=== PATIENT | male | born 1955 | race Caucasian/White ===

== ENCOUNTER 2018-04-04 03:15 | Outpatient (CLI) | payer OTHER, SELFPAY ==
[2018-04-04 08:31] LABS: Cholesterol 180 mg/dL (50-200); HDL Cholesterol 60 mg/dL (40-60); LDL CHOLESTEROL 110 mg/dL (<100); Triglyceride 94 mg/dL (30-150)
== END 2018-04-04 03:35 ==
PROVIDERS: PCP Internal Medicine; Visit Provider Internal Medicine
DX: R78.5 Finding of other psychotropic drug in blood (principal); R97.20 Elevated prostate specific antigen [PSA]
CPT/HCPCS: 36415; 80061; 83721; 84154

== ENCOUNTER 2018-10-29 02:04 | Outpatient (CLI) | payer OTHER, SELFPAY ==
[2018-10-30 15:43] LABS: Free PSA/PSA Ratio 0.11 ratio
== END 2018-10-29 02:24 ==
PROVIDERS: PCP Internal Medicine; Visit Provider Urology
DX: R97.20 Elevated prostate specific antigen [PSA] (principal)
CPT/HCPCS: 36415; 84154

== ENCOUNTER 2019-05-06 09:24 | Outpatient (CLI) | payer OTHER, SELFPAY | END 2019-05-06 09:44 | PROVIDERS: PCP Internal Medicine; Visit Provider Urology | DX: R97.20 Elevated prostate specific antigen [PSA] (principal) | CPT/HCPCS: 36415; 84154 ==

== ENCOUNTER 2020-06-23 02:56 | Outpatient (CLI) | payer OTHER, SELFPAY ==
[2020-06-23 19:50] LABS: PSA, Diagnostic 4.2 ng/mL (0.0-4.5)
== END 2020-06-23 03:16 ==
PROVIDERS: PCP Nurse Practitioner; Visit Provider Urology
DX: R97.20 Elevated prostate specific antigen [PSA] (principal)
CPT/HCPCS: 36415; 84153

== ENCOUNTER 2021-06-27 03:09 | Outpatient (CLI) | payer BC, SELFPAY ==
[2021-06-27 18:38] LABS: PSA, Diagnostic 4.4 ng/mL (0.0-4.5)
== END 2021-06-27 03:10 | disposition home or self-care (01) ==
LOC: LBO 03:09
PROVIDERS: PCP Nurse Practitioner; Visit Provider Urology
DX: R97.20 Elevated prostate specific antigen [PSA] (principal)
CPT/HCPCS: 36415; 84153

== ENCOUNTER 2022-06-19 03:05 | Outpatient (CLI) | payer BC, SELFPAY ==
[2022-06-19 22:16] LABS: PSA, Diagnostic 4.8 ng/mL (<=4.5)
== END 2022-06-19 03:06 | disposition home or self-care (01) ==
LOC: LBO 03:05
PROVIDERS: PCP Nurse Practitioner Family; Visit Provider Urology
DX: R97.20 Elevated prostate specific antigen [PSA] (principal)
CPT/HCPCS: 36415; 84153

== ENCOUNTER 2022-07-26 02:32 | Outpatient (CLI) | payer BC, SELFPAY ==
[2022-07-26 07:39] LABS: Anion Gap 4.9 mmol/L (3-11); BUN 16 mg/dL (7-18); CO2 32.1 mmol/L (21.0-32.0); CREATININE 0.9 mg/dL (0.70-1.30); Chloride 100 mmol/L (98-107); Estimated GFR 94.19 (mL/min/1.73m2); Glucose 104 mg/dL (74-106); Potassium 3.3 mmol/L (3.5-5.1); Sodium 137 mmol/L (136-145)
[2022-07-26 07:41] LABS: COMMENT (LAB VIEW ONLY) 143.85 mg/dL; Microalb ug/mg Crea 4.2 ug/mg Cr
[2022-07-27 10:11] LABS: HIV-1/2 Ag & Ab Screen Negative (Negative)
[2022-07-27 11:02] LABS: Hepatitis C Ab w Rflx HCV PCR Negative (Negative)
== END 2022-07-26 02:33 | disposition home or self-care (01) ==
PROVIDERS: PCP Nurse Practitioner Family; Visit Provider Nurse Practitioner Family
DX: I10 Essential (primary) hypertension (principal); Z11.4 Encounter for screening for human immunodeficiency virus [HIV]; Z11.59 Encounter for screening for other viral diseases
CPT/HCPCS: 36415; 80048; 86803; 87389; 82043; 82570

== ENCOUNTER 2023-06-26 03:39 | Outpatient (CLI) | payer BC, SELFPAY | END 2023-06-26 03:40 | disposition home or self-care (01) | LOC: LBO 03:39 | PROVIDERS: PCP Nurse Practitioner Family; Visit Provider Urology | DX: R97.20 Elevated prostate specific antigen [PSA] (principal) | CPT/HCPCS: 36415; 84153 ==

== ENCOUNTER 2023-07-27 03:37 | Outpatient (CLI) | payer BC, SELFPAY ==
[2023-07-27 07:52] LABS: ALT 28 U/L (16-63); AST 16 U/L (15-37); Albumin 3.6 g/dL (3.4-5.0); Alkaline Phosphatase 103 U/L (46-116); Anion Gap 7.7 mmol/L (3-11); BUN 15 mg/dL (7-18); Bilirubin, Total 0.8 mg/dL (0.2-1.0); CO2 29.3 mmol/L (21.0-32.0); Calcium 9.1 mg/dL (8.5-10.1); Calculated LDL 107 mg/dL (<100); Chloride 98 mmol/L (98-107); Cholesterol 184 mg/dL (<200); Estimated GFR 82.49 (mL/min/1.73m2); Glucose 106 mg/dL (74-106); HDL Cholesterol 55 mg/dL (40-60); Potassium 3.4 mmol/L (3.5-5.1); Sodium 135 mmol/L (136-145); Total Protein 7.4 g/dL (6.4-8.2); Triglyceride 114 mg/dL (<150)
== END 2023-07-27 03:38 | disposition home or self-care (01) ==
PROVIDERS: PCP Nurse Practitioner Family; Visit Provider Nurse Practitioner Family
DX: Z13.220 Encounter for screening for lipoid disorders (principal)
CPT/HCPCS: 36415; 80053; 80061

== ENCOUNTER → 2023-08-09 01:16 | Outpatient (CLI) | payer BC, SELFPAY ==
--- NOTE | 2023-08-09 14:50 | DI.RAD_ITS ---
Exam(s) XR CHEST 2V PA LATERAL EXAM: XR CHEST 2V PA LATERAL CLINICAL HISTORY: ongoing bronchospasm in asthmatic,chronic cough, r05.3. TECHNIQUE: 2D digital imaging was performed. COMPARISON: CR CHEST 2 VIEWS PA,LAT from 10/15/2009 FINDINGS: 2 views: Pectus excavatum is again noted. Heart size is normal. The mediastinum is not widened. There is subsegmental platelike atelectasis in the medial right lung base. No other pulmonary findin gs. No confluent infiltrates. No pleural effusions. IMPRESSION: There is subsegmental platelike atelectasis in the medial right lung base. DATA REPOSITORY: RADIATION DOSE DELIVERED:
== END ==
PROVIDERS: PCP Nurse Practitioner Family; Visit Provider Family Medicine
DX: R05.3 Chronic cough (principal); J98.01 Acute bronchospasm; J98.11 Atelectasis; J45.998 Other asthma
CPT/HCPCS: 71046

== ENCOUNTER 2023-08-24 10:34 | Outpatient (CLI) | payer BC, SELFPAY ==
--- NOTE | 2023-08-24 10:30 | RT.EKG_ITS ---
APPROVED REPORT Exam: Resting ECG Reason for Exam: tachycardia Patient Location: O HR:102 bpm ECG Measurements Heart Rate 102 AXIS TX [id number] P [id number] QRSd 107 QRS -25 QT 355 T 34 QTc 463 Conclusion Atrial fibrillation...? atrial activity Ventricular premature complex...V complex w/ short R-R interval Left ventricular hypertrophy...multiple voltage criteria I have reviewed and interpreted ECG and agree with software generated interpretation.
== END 2023-08-24 10:35 | disposition home or self-care (01) ==
LOC: DI.CM 10:35
PROVIDERS: PCP Nurse Practitioner Family; Visit Provider Nurse Practitioner Family
DX: R00.0 Tachycardia, unspecified (principal); R06.02 Shortness of breath
CPT/HCPCS: 93010

== ENCOUNTER 2023-08-24 15:16 | Emergency (ER) | payer BC, SELFPAY ==
--- NOTE | 2023-08-24 15:15 | RT.EKG_ITS ---
APPROVED REPORT Exam: Resting ECG Reason for Exam: Chest pain Patient Location: E HR:100 bpm ECG Measurements Heart Rate 100 AXIS MD [id number] P [id number] QRSd 108 QRS -25 QT 346 T 65 QTc 447 Conclusion Atrial fibrillation...V-rate 83-127, irreg A-activity Probable LVH with secondary repol abnrm...multiple LVH criteria
[2023-08-24 15:19] VITALS: BP 169/97; PULSE 114; RESP 18; O2SAT 94
--- NOTE | 2023-08-24 15:42 | ED.GENADUL_ITS ---
HPI General Mode of arrival: ambulatory . Date/Time Provider Initiated Documentation: 08/24/23 15:19 . Limitations to Documentation: no limitations . Information obtained by: patient . History of Present Illness 68 year old M presents to the emergency department with the chief complaint of cough, described as moderate, Patient started experiencing this week(s) (5) and it has been constant. No relieving factors improve symptom(s), No exacerbating factors reported . Patient notes shortness of breath; denies chest pain. Patient did receive the following treatments prior to arrival, none Related Data Home Medications Medication Instructions Recorded Confirmed omega-3 fatty acids-fish oil 684 1 ea PO DAILY 08/21/17 08/24/23 mg-1,200 mg capsule,delayed release (One-Per-Day [place]-3) amlodipine 10 mg tablet 10 mg PO DAILY #90 tabs 07/13/23 08/24/23 hydrochlorothiazide 25 mg tablet 25 mg PO DAILY #90 tabs 07/13/23 08/24/23 montelukast 10 mg tablet 10 mg PO DAILY #90 tab-caps 07/13/23 08/24/23 (Singulair) sildenafil 50 mg tablet (Viagra) 50 mg PO DAILY PRN sexual activity 07/13/23 08/24/23 #30 tabs albuterol sulfate 90 mcg/actuation 2 puff inhalation Q6H PRN 08/01/23 08/24/23 aerosol inhaler (ProAir HFA) shortness of breath or wheezing #8.5 grams fluticasone propionate 220 2 puff inhalation BID #1 ea 08/07/23 08/24/23 mcg/actuation HFA aerosol inhaler (Flovent HFA) apixaban 2.5 mg tablet (Eliquis) 2.5 mg PO BID #180 tabs 08/24/23 08/24/23 losartan 100 mg tablet See Rx Instructions PO DAILY 08/24/23 08/24/23 metoprolol succinate 50 mg 50 mg PO DAILY #30 tabs 08/24/23 tablet,extended release 24 hr nystatin 100,000 unit/mL oral 4 ml PO QID 7 days #480 mL 08/24/23 08/24/23 suspension Previous Rx's Medication Instructions Recorded amlodipine 10 mg tablet 10 mg PO DAILY #90 tabs 07/13/23 hydrochlorothiazide 25 mg tablet 25 mg PO DAILY #90 tabs 07/13/23 montelukast 10 mg tablet 10 mg PO DAILY #90 tab-caps 07/13/23 (Singulair) sildenafil 50 mg tablet (Viagra) 50 mg PO DAILY PRN sexual activity 07/13/23 #30 tabs albuterol sulfate 90 mcg/actuation 2 puff inhalation Q6H PRN 08/01/23 aerosol inhaler (ProAir HFA) shortness of breath or wheezing #8.5 grams fluticasone propionate 220 2 puff inhalation BID #1 ea 08/07/23 mcg/actuation HFA aerosol inhaler (Flovent HFA) apixaban 2.5 mg tablet (Eliquis) 2.5 mg PO BID #180 tabs 08/24/23 metoprolol succinate 50 mg 50 mg PO DAILY #30 tabs 08/24/23 tablet,extended release 24 hr nystatin 100,000 unit/mL oral 4 ml PO QID 7 days #480 mL 08/24/23 suspension Allergies Allergy/AdvReac Type Severity Reaction Status Date / Time Penicillins Allergy Intermediate 'throat Verified 08/24/23 15:21 felt funny and eyes swell ' lisinopril AdvReac Unknown COUGH Verified 08/24/23 15:21 General Stated Complaint: GenMedical BERT: 2 Review of Systems All systems reviewed & are unremarkable except as noted in HPI and below Constitutional Constitutional: Denies chills, Denies fever(s) and Denies weakness Cardiovascular Cardiovascular: Denies chest pain and Reports dyspnea Respiratory Respiratory: Reports cough and Reports dyspnea Gastrointestinal Gastrointestinal: Denies abdominal pain, Denies nausea and Denies vomiting Musculoskeletal Musculoskeletal: Denies joint swelling Neurologic Neurologic: Denies weakness Psychiatric Psychiatric: Denies depression Exam Const General: no acute distress Orientation: alert [facility] Head: normal to inspection Ears: external ears normal General nose exam: external nose normal Mouth: moist mucous membranes Eyes General: appearance normal, both eyes and all related structures Neck Neck: normal visual inspection Resp Effort & Inspection: normal respiratory effort and able to speak in complete sentences Auscultation: clear to auscultation bilaterally Cardio Rate: regular rate Heart Sounds: no murmurs GI Palpation: soft and nontender Skin General skin exam: no rashes or lesions noted Neuro General: patient alert and patient oriented x3 Extrem General: normal to inspection Psych Mental Status: mental status grossly normal Course Vital Signs Vital signs: Vital Signs Pulse 114 H 08/24/23 15:19 Respiratory Rate 18 08/24/23 15:19 Blood Pressure 169/97 H 08/24/23 15:19 Pulse Oximetry 94 08/24/23 15:19 Pulse 114 H 08/24/23 15:19 Respiratory Rate 18 08/24/23 15:19 Blood Pressure 169/97 H 08/24/23 15:19 Blood Pressure Position Sitting 08/24/23 15:19 Pulse Oximetry 94 08/24/23 15:19 Oxygen Delivery Method Room Air 08/24/23 15:19 Oxygen Flow Rate 0 08/24/23 15:19 Pain Level 0 08/24/23 15:19 Medical Decision Making 68 yo male with hx of afib on anticoagulation, prior smoker, comes in after he had a CTA of his chest that showed an ascending aortic aneurysm. He states he's had a cough and dyspnea for 5 weeks, had a chest xray that showed no significant findings and had persistent symptoms despite being treated for a copd exacerbation thus underwent outpatient CTA that showed no PE or infiltrates but did show an ascending aortic aneurysm that is 6.2 x 6.6 cm. HE was referred here after this findings. HE arrives hemodynamically stable in afib with rates in the 90's on my exam. He is speaking in full sentences in no distress and appears well, has clear lungs, no murmurs, soft abdomen with no tenderness. Suspect incidental findings on CT and will need f/u with cardiothoracic surgery. Will obtain cbc, cmp, troponin and monitor. labs unremarkable though he is covid positive, states he is vaccinated and has had it before so unlikely to have illness evere enough to be hospitalized, 95% on room air now and no respiratory distress. Spoke with Dr. Carney from cardiac surgery at [facility] [place] who did not feel any interventions were indicated at this time other then starting him on a beta tom and have him call his office on Sunday to arrange an appointment as an outpatient. PT stable, has not started diltiazem so advised not to fill it and to start metoprolol. He will f/u with pcp, and cardiac surgery and return precautions given Differential Diagnosis Differential Diagnosis: aortic aneurysm, copd, nstemi ECG Data Attestation: I personally reviewed and interpreted this ECG (s) as follows: Prior ECG tracings: available for review Interpretation: afib, LVH, rate of 100, no stemi Quality:SDOH Health Related Social Needs: No Data to Display PFSH All Active Problems (Updated 08/24/23 @ 16:41 by Lenny Ordonez MD) Aortic aneurysm, thoracic (Acute) Atrial fibrillation (Chronic) Hypoxia (Acute) Allergic rhinitis due to other allergen (Acute 01/22/14) fall season Asthma (Acute) worse during fall Erectile dysfunction (Acute 02/19/14) Hypertension (Acute 02/19/14) Elevated PSA (Acute) Medical History (Updated 08/24/23 @ 16:41 by Lenny Ordonez MD) Left inguinal hernia Unspecified nasal polyp (01/22/14) Surgical History Vasectomy HERNIA REPAIR (~09/2017) [facility] [place] Colonoscopy - MAC (08/24/17) Family History Mother Heart disease ANGINA Angina pectoris Father Lung cancer Brother Essential hypertension Brother Cancer Social History (Updated 07/21/23 @ 12:26 by Jaymie Edmonds) Smoking/Tobacco Use Status: Former Tobacco Use tobacco type: cigarettes Quit Date: 07/30/95 Tobacco: How many years used: 20 Second Hand Exposure: Yes Smoking risk assessment performed?: Yes Alcohol Intake: current Alcohol Intake frequency: a few times a month Alcohol type: beer and hard liquor Drug use: Never Adopted: No Caregiver/Support person: No Foster care: No Household members: spouse Housing: house Number of Children: 2 number of grandchildren: 3 Communication Needs: None Education Level: high school Do you need help understanding health information?: Never current occupation: [employer] Pets and animals: Yes Pets and animals: cat(s) Sexually active: Yes Do you think of yourself as: straight/heterosexual Current gender identity: male What is your relationship status?: How often do you talk on the phone with friends or family?: decline to answer How often do you get together with friends or relatives?: decline to answer How often do you attend rastafarian or roman catholic services?: decline to answer Do you belong to any clubs or organized social groups?: yes Panel score (0-1 are the most socially isolated patients): 2 What type of physical activity do you participate in: walking and other Details: dirt biking, HIKING, SNOWSHOEING Duration: 30-45 minutes/day Frequency: 5-6 times per week Tracey/Muslim: Hinduism Special tracey needs: No Agree to transfusion: No Seatbelt use: always Helmet use: Yes Helmet use: always Drive intox or ride w/intox shuttle bus driver: No Working smoke detector in home: Yes Carbon monox detector in home: Yes Firearms in home: Yes Firearms unloaded and locked: Yes Do you feel safe at home: Yes Do you feel safe in your relationship?: Yes Victim of physical abuse: No Victim of emotional abuse: No Victim of sexual abuse: No Would you like helpful sources: No Discharge Plan Disposition Patient Disposition: Home Condition: Stable Discharge Details Clinical Impression: Aortic aneurysm, thoracic Primary Care Provider: Job Salinas ED Provider: Lenny Ordonez [place] Meds and New Rx's Prescriptions: New metoprolol succinate 50 mg tablet extended release 24 hr 50 mg PO DAILY Qty: 30 0RF Continued sildenafil [Viagra] 50 mg tablet 50 mg PO DAILY PRN (Reason: sexual activity) Qty: 30 11RF Rx Instructions: administer 30 minutes to 4 hours before activity montelukast [Singulair] 10 mg tablet 10 mg PO DAILY Qty: 90 4RF hydrochlorothiazide 25 mg tablet 25 mg PO DAILY Qty: 90 3RF amlodipine 10 mg tablet 10 mg PO DAILY Qty: 90 4RF albuterol sulfate [ProAir HFA] 90 mcg/actuation HFA aerosol inhaler 2 puff inhalation Q6H PRN (Reason: shortness of breath or wheezing) Qty: 8.5 0RF fluticasone propionate [Flovent HFA] 220 mcg/actuation HFA aerosol inhaler 2 puff Inhalation BID Qty: 1 1RF nystatin 100,000 unit/mL suspension 4 ml PO QID 7 Days Qty: 480 0RF Rx Instructions: Swish in the mouth and retain for as long as possible (several minutes) before swallowing Eliquis 2.5 mg tablet 2.5 mg PO BID Qty: 180 0RF Rx Instructions: 5 mg po BID x 7 days, then decrease to 2.5 mg BID losartan 100 mg tablet See Rx Instructions PO DAILY Rx Instructions: 50 mg orally daily; One-Per-Day [place]-3 1 EACH capsule,delayed release(/EC) 1 ea PO DAILY Discontinued diltiazem HCl 120 mg capsule,extended release 24 hr 120 mg PO DAILY Qty: 90 0RF Discharge Instructions Additional Instructions: You have a dilated ascending aorta which you've likely had for awhile. I spoke with the cardiac surgeon at [facility] Dr. Carney who recommended you start a beta tom (metoprolol) and call their office Sunday to arrange follow up [phone]. You should also contact your primary care office for an official referral to the cardiac surgeons at [facility] start the metoprolol, I'd recommend not filling the diltiazem at this time you are covid positive and should isolate until your cough improves and you are fever free for 24 hours if you feel more ill, have severe chest or back pain return to the emergency department
[2023-08-24 15:50] LABS: Abs Immature Grans 0.02 10^3/uL (0.0-0.06); Absolute Basophil Count 0.05 10^3/uL (0.0-0.2); Absolute Eosinophil Count 0.14 10^3/uL (0.0-0.7); Absolute Lymphocyte Count 0.92 10^3/uL (1.2-3.4); Eosinophils % 2.8; HCT 41.4 % (40.0-50.0); HGB 14.3 g/dL (13.5-17.5); Immature Grans % 0.4; Lymphocytes % 18.7; MCH 29.2 pg (27.0-33.0); MCHC 34.5 % (32.0-36.0); MCV 85 fL (80-95); MPV 9.3 fL (8.0-11.0); Monocytes % 12.2; Neutrophils % 64.9; Platelet Count 212 10^3/uL (130-400); RDW 12.3 % (11.8-14.1); RDW-SD 37.9 fL; WBC 4.93 10^3/uL (4.4-10.8)
[2023-08-24 16:03] LABS: INR 1.2 (0.9-1.1); PTT Activated 28.8 sec (23.6-32.8); Prothrombin Time 12.1 sec (9.1-11.1)
[2023-08-24 16:08] LABS: ALT 19 U/L (16-63); AST 14 U/L (15-37); Albumin 3.5 g/dL (3.4-5.0); Alkaline Phosphatase 102 U/L (46-116); Anion Gap 9.6 mmol/L (3-11); BUN 24 mg/dL (7-18); Bilirubin, Total 0.6 mg/dL (0.2-1.0); CO2 25.4 mmol/L (21.0-32.0); CREATININE 0.9 mg/dL (0.70-1.30); Calcium 8.9 mg/dL (8.5-10.1); Chloride 101 mmol/L (98-107); Estimated GFR 93.03 (mL/min/1.73m2); Glucose 113 mg/dL (74-106); Magnesium 2.2 mg/dL (1.8-2.4); Potassium 3.4 mmol/L (3.5-5.1); Sodium 136 mmol/L (136-145); Total Protein 7.1 g/dL (6.4-8.2); Troponin I < 50 ng/L (< or =60)
[2023-08-24 16:13] LABS: TSH (W/Ref FT4) 3.46 uIU/mL (0.36-3.74)
[2023-08-24 16:27] LABS: Influenza A PCR Negative (Negative); Influenza B PCR Negative (Negative); RSV PCR Negative (Negative)
[2023-08-24 16:30] LABS: COVID-19 PCR Positive (Negative); Source Nasopharynx
== END 2023-08-24 17:02 | disposition home or self-care (01) ==
PROVIDERS: Emergency Provider Emergency Medicine; PCP Nurse Practitioner Family
DX: I71.21 Aneurysm of the ascending aorta, without rupture (principal); I48.91 Unspecified atrial fibrillation; U07.1 COVID-19; I10 Essential (primary) hypertension; J44.9 Chronic obstructive pulmonary disease, unspecified; Z79.01 Long term (current) use of anticoagulants; Z87.891 Personal history of nicotine dependence
CPT/HCPCS: 80053; 87637; 93005; 99284; 80329; 83735; 84443; 84484; 85025; 85610; 85730; 93010

== ENCOUNTER → 2023-09-10 00:50 | Outpatient (CLI) | payer BC, SELFPAY ==
[2023-09-10] MEDS: Barium Sulfate 700 MG TAB PO (10:49)
[2023-09-10] MEDS: Simethicone/Sod Bicarb/Cit Ac, 4 gram PACKET 1 PACKET PO (10:51)
[2023-09-10] MEDS: Barium Sulfate 60% W/V 355 ML BTL PO (10:52)
[2023-09-10] MEDS: Barium Sulfate 98% W/W 140 ML BTL PO (10:53)
--- NOTE | 2023-09-10 11:58 | DI.RAD_ITS ---
Exam(s) RF BARIUM SWALLOW EXAM: RF BARIUM SWALLOW CLINICAL HISTORY: ESOPHAGEAL MASS,K22.89,PREOP.EVAL MOTILITY AND FOR OBSTRUCTION TECHNIQUE: 2D and realtime digital imaging was performed. CONTRAST MATERIAL: Thick and thin barium and barium tablet were administered. COMPARISON: CT CT CHEST PE CTA from 08/24/2023 FINDINGS: The PA and lateral chest films show clear lung denton. The heart is enlarged. The aorta is tortuou s. The lateral operating manager view of the neck is unremarkable. Esophagus: The patient swallowed barium without difficulty. Noevidence for mucosal erosions. Nofol d thickening. No mass is visible. Nostricture. Motility: There is a normal primary stripping wave. No tertiary contractions were noted. There is no hiatal hernia. Nogastroesophageal reflux was observed during the exam. The barium tablet stuck briefly in the lower esophagus. IMPRESSION: Barium tablet stuck briefly in the distal esophagus. No evidence of stricture normal motility RADIATION DOSE DELIVERED: elsie Maurer=13.9 mGy
== END ==
PROVIDERS: PCP Nurse Practitioner Family; Visit Provider Physician Assistant Surgical
DX: K22.89 Other specified disease of esophagus (principal)
CPT/HCPCS: 74221; J3490

== ENCOUNTER 2023-10-24 11:11 | Outpatient (RCR) | payer BC, SELFPAY | END 2023-10-28 23:59 | disposition home or self-care (01) | LOC: CR 11:11 | PROVIDERS: PCP Nurse Practitioner Family; Visit Provider Internal Medicine Cardiovascular Disease | DX: I71.21 Aneurysm of the ascending aorta, without rupture (principal); Z51.89 Encounter for other specified aftercare | CPT/HCPCS: S9472 ==

== ENCOUNTER 2023-11-19 09:06 | Emergency (ER) | payer BC, SELFPAY ==
[2023-11-19] VITALS (53 sets, daily range): BP systolic 125–178; BP diastolic 63–91; PULSE 46–56; RESP 10–21; TEMP 36.6; O2SAT 92–99
--- NOTE | 2023-11-19 09:15 | RT.EKG_ITS ---
APPROVED REPORT Exam: Resting ECG Reason for Exam: dizzy Patient Location: E HR:54 bpm ECG Measurements Heart Rate 54 AXIS [place] 236 P 76 QRSd 120 QRS -31 QT 415 T 195 QTc 394 Conclusion Sinus bradycardia 54 long [place] 236 TWI V4-V6
--- NOTE | 2023-11-19 09:21 | W.ED.GENAD ---
Discharge Plan Disposition Patient Disposition: Home Condition: Stable Discharge Details Clinical Impression: Dizziness Primary Care Provider: Job Salinas ED Provider: Chuy Milian Home Meds and New Rx's Prescriptions: New losartan 25 mg tablet 25 mg PO BID 30 Days Qty: 60 0RF Rx Instructions: Goal Systolic BP <125; follow-up with PCP to titrate dosing Continued montelukast [Singulair] 10 mg tablet 10 mg PO DAILY Qty: 90 4RF hydrochlorothiazide 25 mg tablet 25 mg PO DAILY Qty: 90 3RF albuterol sulfate [ProAir HFA] 90 mcg/actuation HFA aerosol inhaler 2 puff inhalation Q6H PRN (Reason: shortness of breath or wheezing) Qty: 8.5 0RF apixaban 2.5 mg tablet 2.5 mg PO BID fluticasone propionate 220 mcg/actuation HFA aerosol inhaler See Rx Instructions .ROUTE .COMPLEX Qty: 12 1RF Dose Instruction: INHALE TWO PUFFS BY MOUTH TWICE A DAY Rx Instructions: INHALE TWO PUFFS BY MOUTH TWICE A DAY aspirin [Adult Aspirin Regimen] 81 mg tablet,delayed release (DR/EC) 81 mg PO DAILY Rx Instructions: 10/08/23 Per [facility] [place] Held metoprolol tartrate 50 mg tablet 50 mg PO BID Hold Instructions: Resume on 11/19/23. Please begin taking 25mg BID, you can break these tablets in half to do so. Rx Instructions: 10/08/23 Per [facility] [place] No Action doxycycline hyclate 100 mg capsule 100 mg PO ONCE Rx Instructions: Take 1 tablet by mouth once as needed(take 30minutes to 1 hour prior to dental procedures for up to 1 dose) 10/08/23 Per [facility] -[place] Discharge Instructions Instructions: Losartan (By mouth), Dizziness (ED) Additional Instructions: You were seen in the emergency department for your symptomatic bradycardia or slow heart rate causing some dizziness which is the likely outcome after a negative cardiac workup and a normal CT of your head, neck, thorax to check on your recently operated on aortic aneurysm. I spoke with [facility] [place]. We both feel that this is possibly linked to your recent change from once a day extended release metoprolol to twice a day of metoprolol. You are not found to be in atrial fibrillation. I spoke with your PCP Job Ramos, we made a plan for close follow-up. We would like you to take 25mg BID of your metoprolol- you can break these tablets in half. I have sent an Rx for 25mg tablets of Losartan, I would like you to start at 25mg BID of Losartan, and up-titrate from their with management from your PCP. I will also place a referral for you to establish care with our Cardiology practice at [facility]. Please return for any emergent concerns like bradycardia, [id number] high blood pressures, dizziness, chest pain, shortness of breath. Referrals: [facility] [Provider Group] Job Salinas, PRESSURIZER [Primary Care Provider] - HPI General Date/Time Provider Initiated Documentation: 11/19/23 09:21. HPI Narrative: 68 year-old male presents to ED today by POV/ambulating with a chief complaint of dizziness with onset this morning. Patient had incidental findings of congenital heart defects and ascending aortic aneurysm and descending aneurysm that were electively repaired [place] [facility] [place]. He has known atrial fibrillation. Noticed this morning that he has been very dizziness upon awakening, and that his heart rate was in the 40s, and BP was elevated to SBP ~150s. Quality described as lightheadedness, no radiation to chest pain, shortness of breath, paleness, syncope, fever, cough, abdominal pain. Severity is described as moderate. Palliating factors include nothing specific attempted. Provoking factors include nothing specific. Events leading up to the incident/Associated Symptoms: Patient had no onset of chest pain prior to his incidental aneurysmal findings back in September. Patient is anticoagulated on Eliquis. Related Data Home Medications Medication Instructions Recorded Confirmed hydrochlorothiazide 25 mg tablet 25 mg PO DAILY #90 tabs 07/13/23 11/19/23 montelukast 10 mg tablet 10 mg PO DAILY #90 tab-caps 07/13/23 11/19/23 (Singulair) albuterol sulfate 90 mcg/actuation 2 puff inhalation Q6H PRN 08/01/23 11/19/23 aerosol inhaler (ProAir HFA) shortness of breath or wheezing #8.5 grams fluticasone propionate 220 See Rx Instructions .Route 10/08/23 11/19/23 mcg/actuation HFA aerosol inhaler .COMPLEX #12 grams aspirin 81 mg tablet,delayed 81 mg PO DAILY 10/12/23 11/19/23 release (Adult Aspirin Regimen) doxycycline hyclate 100 mg capsule 100 mg PO ONCE 10/12/23 11/19/23 metoprolol tartrate 50 mg tablet 50 mg PO BID 10/12/23 11/19/23 apixaban 2.5 mg tablet 2.5 mg PO BID 10/25/23 11/19/23 losartan 25 mg tablet 25 mg PO BID hypertension 30 days 11/19/23 #60 tabs Previous Rx's Medication Instructions Recorded hydrochlorothiazide 25 mg tablet 25 mg PO DAILY #90 tabs 07/13/23 montelukast 10 mg tablet 10 mg PO DAILY #90 tab-caps 07/13/23 (Singulair) albuterol sulfate 90 mcg/actuation 2 puff inhalation Q6H PRN 08/01/23 aerosol inhaler (ProAir HFA) shortness of breath or wheezing #8.5 grams fluticasone propionate 220 See Rx Instructions .Route 10/08/23 mcg/actuation HFA aerosol inhaler .COMPLEX #12 grams losartan 25 mg tablet 25 mg PO BID hypertension 30 days 11/19/23 #60 tabs Allergies Allergy/AdvReac Type Severity Reaction Status Date / Time Penicillins Allergy Intermediate 'throat Verified 11/19/23 09:14 felt funny and eyes swell ' lisinopril AdvReac Unknown COUGH Verified 11/19/23 09:14 General Stated Complaint: Dizzy/Sync BERT: 3 Review of Systems All systems reviewed & are unremarkable except as noted in HPI and below Exam Narrative Exam Narrative: GENERAL APPEARANCE: Well-nourished, non-toxic, awake and alert, atraumatic, no acute distress. SKIN: Warm, pink, dry, intact, without rashes/lesions/ulcerations. HEAD: Normocephalic, atraumatic, normal hair distribution for gender/age. EYES: Pupils PERRLA, EOMs intact without nystagmus, normal conjunctiva, no exudates on lids/lashes. ENT: Nares patent, no circumoral cyanosis, no facial swelling NECK: Supple, trachea midline, painless cervical ROM, R-sided carotid bruit LUNGS/CHEST: Lungs CTA bilaterally- no rhonchi/rales/wheezes diffusely, non-labored respirations, normal A/P diameter, symmetrical expansion, no chest wall deformity HEART (CV/PV): Regular rate and rhythm-bradycardic in 50s, with murmur of 2/6, no peripheral edema, no JVD. ABDOMEN: Soft, non-distended, no guarding, no tenderness, no abdominal bruit, normoactive bowel sounds, no pulsatile masses to palpation. MSK: Normal ROM, no swelling/deformity to bilateral UEs or LEs, moving all extremities without weakness, no cyanosis, spine midline without tenderness, normal curvature. NEURO: Mental Status AAOx4 - alert to person, place, time, events No facial droop, no forehead involvement. Motor: No focal weakness - strength 5/5 in bilateral UEs and LEs, proximal and distal, symmetric. Sensory: sensation intact to light touch globally. Gait normal: patient ambulated without ataxia into ED room. PSYCH: euthymic, cooperative, pleasant, appropriate speech Course Vital Signs Vital signs: Vital Signs Temperature 36.6 C 11/19/23 09:12 Pulse 52 L 11/19/23 09:12 Respiratory Rate 18 11/19/23 09:12 Blood Pressure 152/76 H 11/19/23 09:12 Pulse Oximetry 97 11/19/23 09:12 Temperature 36.6 C 11/19/23 09:12 Temperature Source Skin 11/19/23 09:12 Pulse 52 L 11/19/23 09:12 Respiratory Rate 18 11/19/23 09:12 Blood Pressure 144/67 H 11/19/23 09:16 Blood Pressure Position Sitting 11/19/23 09:12 Pulse Oximetry 97 11/19/23 09:12 Oxygen Delivery Method Room Air 11/19/23 09:12 Oxygen Flow Rate 0 11/19/23 09:12 Pain Level 0 11/19/23 09:12 Medical Decision Making This dictation utilizes [id number] dictation software and may contain unedited grammatical errors. 68 y/o M presents to ED today with a chief complaint of dizziness this morning. New onset, and noted bradycardia in the 40s. Patient had open heart surgery for incidental findings of TAA and congenital defects [place] [facility] [place]. Has had no chest pain during that workup or since his successful surgery. Patient denies chest pain today, denies near syncope, denies any abdominal pain, visual changes or other neuro deficits. Patients' medical history: atrial fibrillation, ascending aortic repair, HTN, hernia repair, aortic stenosis. Family and social history: eats healthy, lives at home with his , engaged in cardiac rehab for exercise. Pertinent exam findings / vital signs include right carotid bruit, murmur of AAS, bradycardic in the 50s, elevated blood pressure 144/67, benign abdomen, neuro intact. Differential / pathologies of concern include Aortic Aneurysm Repair Complication, ACS, CVA/TIA, Carotid Dissection, CVA/TIA, CHF, Heart Block, Atrial Fibrillation. Diagnostic studies of: -CBC, CMP, Lactate, BNP, Trop I + Delta Trop I, D-dimer, EKG, CTA Head/Neck/Chest (aorta study). -EKG shows sinus bradycardia at 54 bpm, there are P waves seen in multiple leads with a narrow complex QRS, normal QT QT interval, left axis deviation, some inverted T waves in lead I to V4 5 and 6, no STEMI -repeat EKG shows no dynamic changes, rhythm strip shows no heart block -Ddimer 1400 -BNP elevated at 1900 -Initial trop negative, delta value negative -CBC shows no leukocytosis, no anemia -CMP benign -Lactate negative -Please note [employer] is having problems importing labs below -CTA's show no acute intracranial abnormality, no extravasation at aortic graft, no pathology seen Interventions of: -Consult [facility] [place] -spoke with the provider for symptomatic bradycardia, with a recent change of his metoprolol from extended release to twice a day metoprolol tartrate think is reasonable to have the dose of metoprolol as this is the likely source of bradycardia and dizziness. I discussed with him further blood pressure management and their goal of less than 125 systolic blood pressure, the patient formally was on losartan and I plan to start him on 25 mg twice daily, titrated up by his primary care physician. ED Course/Assessment/Plan: 68-year-old male presents for symptomatic bradycardia with dizziness without chest pain or shortness of breath here this morning. He had thoracic aortic aneurysm repair a little over a month ago. He has not experienced any chest pain since then, he has had chronic A-fib and is anticoagulated on Eliquis. He is not found to be in atrial fibrillation today, perhaps the surgery has resolved his atrial fibrillation. He had a recent medication adjustment of metoprolol to twice a day dosing, plan to have this as it is likely source of his dizziness. I discussed possible observation with [facility] [place], they state if he has been asymptomatic for a few hours in the department which she has-that he could be discharged home with close follow-up. I did arrange for him to establish care with our cardiology practice, I spoke with his primary care physician about the medication changes I was making and they have a follow-up scheduled for 2 days from now at 0930. The patient will return emergently for any further worsening despite treatment, he will keep track of his blood pressure 3-4 times per day and communicate with PCP for titration up of losartan. Findings not consistent with aortic graft compromise, ACS, PE, pneumonia, complete heart block. Disposition of dizziness. Patient verbalized understanding of the plan and return to ED criteria and engaged in shared decision making. Medical Records Medical records reviewed: Yes I reviewed the patient's medical records. Imaging Data Radiologic Study: Attestation: I personally reviewed and interpreted this imaging study as follows: Imaging: CT Scan Radiologist's impression: EXAM: CT BRAIN NECK CTA CLINICAL HISTORY: dizziness, recent TAA repair, carotid bruit. TECHNIQUE: Imaging Protocol: Axial CT angiography was performed with multi-slice acquisition and multi-planar and/or 3D reconstructions. CONTRAST MATERIAL: Intravenous: Omnipaque 350 contrast volume:85 mL COMPARISON: CT CT CHEST PE CTA from 08/24/2023 FINDINGS: The examination is limited due to patient motion artifact. CT Head W/O and W: Ventricles and Extra axial spaces: Normal in size and morphology for the patient's age. Hemorrhage: None. Cerebral parenchyma: Normal. No mass effect. Midline shift: None. Brainstem/Cerebellum: Normal. Calvarium: Normal. Visualized Paranasal sinuses/Mastoids: Mucosal thickening is seen in the maxillary sinuses bilaterally. There is a small fluid level in the left maxillary sinus which may reflect an acute sinusitis. There is a opacification of several ethmoid air cells bilaterally. Soft Tissues: Unremarkable. Enhancement: Unremarkable. CTA Neck W: Common Carotid: Right: No dissection, occlusion or significant stenosis. Left: No dissection, occlusion or significant stenosis. External Carotid: Right: No occlusion or significant stenosis. Left: No occlusion or significant stenosis. Internal Carotid: Right: Mild atherosclerotic calcification of the origins of both internal carotid arteries without significant stenosis. Left: No dissection, occlusion or significant stenosis. Vertebral Artery: Right: No dissection, occlusion or significant stenosis. Left: No dissection, occlusion or significant stenosis. Bones: Within normal limits for the patient's age. There is mild reversal of the normal cervical lordosis centered at C5-C6. Degenerative changes are seen in the cervical spine at C5-C6 and C6-C7. Soft Tissues: Normal. Thyroid gland: Unremarkable. CTA Brain W: Internal Carotid Arteries: Mild atherosclerotic calcification of the cavernous portions of both internal carotid arteries without significant stenosis. No aneurysm or occlusion is present. Anterior Cerebral Arteries: Right: No aneurysm, occlusion or significant stenosis. Left: No aneurysm, occlusion or significant stenosis. Middle Cerebral Arteries: Right: No aneurysm, occlusion or significant stenosis. Left: No aneurysm, occlusion or significant stenosis. Posterior Cerebral Arteries: Right: No aneurysm, occlusion or significant stenosis. Left: No aneurysm, occlusion or significant stenosis. Vertebral Arteries: Right: No aneurysm, occlusion or significant stenosis. Left: No aneurysm, occlusion or significant stenosis. Basilar Artery: No aneurysm, occlusion or significant stenosis. IMPRESSION: 1. No large vessel occlusion or significant stenosis on the CT angiography of the head. 2. No acute intracranial process. 3. No occlusion or significant stenosis on the CT angiography of the neck. Radiologic Study #2: Attestation: I personally reviewed and interpreted this imaging study as follows: Imaging: CT Scan Radiologist's impression: EXAM: CT THORAX CTA CLINICAL HISTORY: dizziness, recent TAA repair, carotid bruit. TECHNIQUE: Imaging Protocol: Axial CT angiography was performed with multi-slice acquisition and multi-planar and/or 3D reconstructions. CONTRAST MATERIAL: Intravenous: Omnipaque 350 contrast volume:63 mL COMPARISON: CT CT CHEST PE CTA from 08/24/2023 FINDINGS: Tracheobronchial tree: Patent where visualized. Pulmonary parenchyma: There is a stable 4 mm nodule in the lateral aspect of the left lower lobe (series 6, image 264). No infiltrates are seen. There are mild emphysematous changes in the lungs. There is a stable 3 mm nodule in the periphery of the right upper lobe (series 6, image 172). There are stable peripheral nodular areas of scarring present in the right middle lobe. Stable scarring is seen in the lung apices bilaterally. No acute infiltrates are seen. Pulmonary Arteries: Due to the timing of the bolus, opacification of the pulmonary arteries are suboptimal for evaluation of pulmonary emboli. No large central pulmonary embolus is present. Mediastinum and Anushka: No dominant adenopathy or fluid collection. The esophagus is unremarkable. Visualized thyroid gland: Unremarkable. Pleura: No effusion or pneumothorax. Heart: The heart is not dilated. Coronary artery calcifications are present. No pericardial effusion. Aorta: The patient has had a ascending thoracic aortic aneurysm repair. There is no extravasation of contrast. No evidence of dissection. There is mild infiltration in the mediastinum adjacent to the repair which may be postsurgical. No focal fluid collection is seen to suggest an abscess. No evidence of dissection. Upper abdomen: Unremarkable. Soft tissues: Unremarkable. Bones: Within normal limits for the patient's age.Sternal wires are in place. IMPRESSION: 1. Status post ascending thoracic aorta aneurysm repair. No evidence of extravasation. 2. Stable pulmonary nodules. Solid nodules smaller than 6 mm do not require routine follow-up in all patients with high clinical risk; however, some nodules smaller than 6 mm with suspicious morphology, upper lobe location, or both may warrant follow-up at 12 months (grade 2A; weak recommendation, high-quality evidence). (Raymond et al., 2017) Single solid noncalcified nodules. ???Solid nodules smaller than 6 mm (those 5 mm or smaller) do not require routine follow-up in patients at low risk (grade 1C; strong recommendation, low- or [id number] evidence). (Raymond et al., 2017) 3. No acute pulmonary process. Lab Data Lab results reviewed: Yes I reviewed the patient's lab results. Labs: Laboratory Tests Range/Units 11/19/23 11/19/23 09:44 12:50 D-Dimer (<500) ng/mlFEU 1497 H VBG Lactate (0.6-1.4) mmol/L 1.3 Sodium (136-145) mmol/L 138 Potassium (3.5-5.1) mmol/L 3.8 Chloride (98-107) mmol/L 100 Carbon Dioxide (21.0-32.0) mmol/L 29.3 Anion Gap (3-11) mmol/L 8.7 BUN (7-18) mg/dL 19 H Creatinine (0.70-1.30) mg/dL 1.1 Est GFR (CKD-EPI 2020) (mL/min/1.73m2) 73.12 Glucose (74-106) mg/dL 74 Calcium (8.5-10.1) mg/dL 8.8 Total Bilirubin (0.2-1.0) mg/dL 0.7 AST (15-37) U/L 22 ALT (16-63) U/L 34 Alkaline Phosphatase (46-116) U/L 133 H Troponin I (< or =60) ng/L < 50 < 50 NT-Pro-B Natriuret Pep (<300) pg/mL 1991 H Total Protein (6.4-8.2) g/dL 7.2 Albumin (3.4-5.0) g/dL 3.8 Quality:[facility] Health Related Social Needs: No Data to Display PFSH All Active Problems (Updated 11/19/23 @ 14:14 by SISI Head) Dizziness (Acute) Thrush (Acute) Atrial fibrillation (Chronic) Hypoxia (Acute) Allergic rhinitis due to other allergen (Acute 01/22/14) fall season Asthma (Acute) worse during fall Erectile dysfunction (Acute 02/19/14) Hypertension (Acute 02/19/14) Elevated PSA (Acute) Medical History Aortic stenosis 10/08/23 Per [facility] Ascending aortic aneurysm 10/08/23 Per [facility] [place] Left inguinal hernia Unspecified nasal polyp (01/22/14) Surgical History Hx of ascending aorta replacement 10/08/23 Per [facility]. -[facility] S/P AVR (aortic valve replacement) 10/08/23 Per [facility]. -[facility] Vasectomy HERNIA REPAIR (~09/2017) [facility] Colonoscopy - MAC (08/24/17) Family History Mother Heart disease ANGINA Angina pectoris Father Lung cancer Brother Essential hypertension Brother Cancer Social History Smoking/Tobacco Use Status: Former Tobacco Use tobacco type: cigarettes Quit Date: 07/30/95 Tobacco: How many years used: 20 Second Hand Exposure: Yes Smoking risk assessment performed?: Yes Alcohol Intake: current Alcohol Intake frequency: a few times a month Alcohol type: beer and hard liquor Drug use: Never Adopted: No Caregiver/Support person: No Foster care: No Household members: spouse Housing: house Number of Children: 2 number of grandchildren: 3 Communication Needs: None Education Level: high school Do you need help understanding health information?: Never current occupation: [employer] Pets and animals: Yes Pets and animals: cat(s) Sexually active: Yes Do you think of yourself as: straight/heterosexual Current gender identity: male What is your relationship status?: How often do you talk on the phone with friends or family?: decline to answer How often do you get together with friends or relatives?: decline to answer How often do you attend anabaptist or synagogue services?: decline to answer Do you belong to any clubs or organized social groups?: yes Panel score (0-1 are the most socially isolated patients): 2 What type of physical activity do you participate in: walking and other Details: dirt biking, HIKING, SNOWSHOEING Duration: 30-45 minutes/day Frequency: 5-6 times per week Tracey/[employer]regation: [employer] Special tracey needs: No Agree to transfusion: No Seatbelt use: always Helmet use: Yes Helmet use: always Drive intox or ride w/intox haul truck driver: No Working smoke detector in home: Yes Carbon monox detector in home: Yes Firearms in home: Yes Firearms unloaded and locked: Yes Do you feel safe at home: Yes Do you feel safe in your relationship?: Yes Victim of physical abuse: No Victim of emotional abuse: No Victim of sexual abuse: No Would you like helpful sources: No
--- NOTE | 2023-11-19 09:30 | DI.CT_ITS ---
Exam(s) CT BRAIN NECK CTA EXAM: CT BRAIN NECK CTA CLINICAL HISTORY: dizziness, recent TAA repair, carotid bruit. TECHNIQUE: Imaging Protocol: Axial CT angiography was performed with multi-slice acquisition and mu lti-planar and/or 3D reconstructions. CONTRAST MATERIAL: Intravenous: Omnipaque 350 contrast volume:85 mL COMPARISON: CT CT CHEST PE CTA from 08/24/2023 FINDINGS: The examination is limited due to patient motion artifact. CT Head W/O and W: Ventricles and Extra axial spaces: Normal in size and morphology for the patient's age. Hemorrhage: None. Cerebral parenchyma: Normal. No mass effect. Midline shift: None. Brainstem/Cerebellum: Normal. Calvarium: Normal. Visualized Paranasal sinuses/Mastoids: Mucosal thickening is seen in the maxillary sinuses bilaterall y. There is a small fluid level in the left maxillary sinus which may reflect an acute sinusitis. T here is a opacification of several ethmoid air cells bilaterally. Soft Tissues: Unremarkable. Enhancement: Unremarkable. CTA Neck W: Common Carotid: Right: No dissection, occlusion or significant stenosis. Left: No dissection, occlusion or significant stenosis. External Carotid: Right: No occlusion or significant stenosis. Left: No occlusion or significant stenosis. Internal Carotid: Right: Mild atherosclerotic calcification of the origins of both internal carotid arteries without s ignificant stenosis. Left: No dissection, occlusion or significant stenosis. Vertebral Artery: Right: No dissection, occlusion or significant stenosis. Left: No dissection, occlusion or significant stenosis. Bones: Within normal limits for the patient's age. There is mild reversal of the normal cervical lord osis centered at C5-C6. Degenerative changes are seen in the cervical spine at C5-C6 and C6-C7. Soft Tissues: Normal. Thyroid gland: Unremarkable. CTA Brain W: Internal Carotid Arteries: Mild atherosclerotic calcification of the cavernous portions of both inter nal carotid arteries without significant stenosis. No aneurysm or occlusion is present. Anterior Cerebral Arteries: Right: No aneurysm, occlusion or significant stenosis. Left: No aneurysm, occlusion or significant stenosis. Middle Cerebral Arteries: Right: No aneurysm, occlusion or significant stenosis. Left: No aneurysm, occlusion or significant stenosis. Posterior Cerebral Arteries: Right: No aneurysm, occlusion or significant stenosis. Left: No aneurysm, occlusion or significant stenosis. Vertebral Arteries: Right: No aneurysm, occlusion or significant stenosis. Left: No aneurysm, occlusion or significant stenosis. Basilar Artery: No aneurysm, occlusion or significant stenosis. IMPRESSION: 1. No large vessel occlusion or significant stenosis on the CT angiography of the head. 2. No acute intracranial process. 3. No occlusion or significant stenosis on the CT angiography of the neck. RADIATION DOSE DELIVERED: 2,200.31mGy.cm Total DLP DATA REPOSITORY: All CT scans at this facility are submitted to the National Radiology Data Registry (NRDR) Dose Index Registry (DIR) with the [employer] (A[employer]). RADIATION OPTIMIZATION: All CT scans at this facility use at least one of these dose optimization te chniques: automated exposure control; mA and/or kV adjustment per patient size (includes targeted exa ms where dose is matched to clinical indication); or iterative reconstruction.
[2023-11-19 09:48] LABS: Lactate 1.3 mmol/L (0.6-1.4)
[2023-11-19] MEDS: Omnipaque 350 MG/ML 100 ML BTL IJ ×2 (10:08→10:10)
[2023-11-19] MEDS: Normal Saline - Diluent 50 ML VIAL IJ ×2 (10:08→10:09)
[2023-11-19 10:13] LABS: ALT 34 U/L (16-63); AST 22 U/L (15-37); Albumin 3.8 g/dL (3.4-5.0); Alkaline Phosphatase 133 U/L (46-116); Anion Gap 8.7 mmol/L (3-11); BUN 19 mg/dL (7-18); Bilirubin, Total 0.7 mg/dL (0.2-1.0); CO2 29.3 mmol/L (21.0-32.0); CREATININE 1.1 mg/dL (0.70-1.30); Calcium 8.8 mg/dL (8.5-10.1); Chloride 100 mmol/L (98-107); Estimated GFR 73.12 (mL/min/1.73m2); Glucose 74 mg/dL (74-106); NT-proBNP 1991 pg/mL (<300); Potassium 3.8 mmol/L (3.5-5.1); Sodium 138 mmol/L (136-145); Total Protein 7.2 g/dL (6.4-8.2); Troponin I < 50 ng/L (< or =60)
[2023-11-19 10:18] LABS: D-Dimer 1497 ng/mlFEU (<500)
--- NOTE | 2023-11-19 10:30 | DI.CT_ITS ---
Exam(s) CT THORAX CTA EXAM: CT THORAX CTA CLINICAL HISTORY: dizziness, recent TAA repair, carotid bruit. TECHNIQUE: Imaging Protocol: Axial CT angiography was performed with multi-slice acquisition and mu lti-planar and/or 3D reconstructions. CONTRAST MATERIAL: Intravenous: Omnipaque 350 contrast volume:63 mL COMPARISON: CT CT CHEST PE CTA from 08/24/2023 FINDINGS: Tracheobronchial tree: Patent where visualized. Pulmonary parenchyma: There is a stable 4 mm nodule in the lateral aspect of the left lower lobe (ser ies 6, image 264). No infiltrates are seen. There are mild emphysematous changes in the lungs. The re is a stable 3 mm nodule in the periphery of the right upper lobe (series 6, image 172). There are stable peripheral nodular areas of scarring present in the right middle lobe. Stable scarring is se en in the lung apices bilaterally. No acute infiltrates are seen. Pulmonary Arteries: Due to the timing of the bolus, opacification of the pulmonary arteries are subop timal for evaluation of pulmonary emboli. No large central pulmonary embolus is present. Mediastinum and Anushka: No dominant adenopathy or fluid collection. The esophagus is unremarkable. Visualized thyroid gland: Unremarkable. Pleura: No effusion or pneumothorax. Heart: The heart is not dilated. Coronary artery calcifications are present. No pericardial effusion . Aorta: The patient has had a ascending thoracic aortic aneurysm repair. There is no extravasation of contrast. No evidence of dissection. There is mild infiltration in the mediastinum adjacent to the repair which may be postsurgical. No focal fluid collection is seen to suggest an abscess. No evid ence of dissection. Upper abdomen: Unremarkable. Soft tissues: Unremarkable. Bones: Within normal limits for the patient's age.Sternal wires are in place. IMPRESSION: 1. Status post ascending thoracic aorta aneurysm repair. No evidence of extravasation. 2. Stable pulmonary nodules. Solid nodules smaller than 6 mm do not require routine follow-up in all patients with high clinical r isk; however, some nodules smaller than 6 mm with suspicious morphology, upper lobe location, or both may warrant follow-up at 12 months (grade 2A; weak recommendation, high-quality evidence). (Raymond et al., 2017) Single solid noncalcified nodules. ???Solid nodules smaller than 6 mm (those 5 mm or smaller) do not require routine follow-up in patients at low risk (grade 1C; strong recommendation, low- or very-low- quality evidence). (Raymond et al., 2017) 3. No acute pulmonary process. RADIATION DOSE DELIVERED: 483.97mGy.cm Total DLP 483.97mGy.cm Total DLP DATA REPOSITORY: All CT scans at this facility are submitted to the National Radiology Data Registry (NRDR) Dose Index Registry (DIR) with the [employer] (ACR). RADIATION OPTIMIZATION: All CT scans at this facility use at least one of these dose optimization te chniques: automated exposure control; mA and/or kV adjustment per patient size (includes targeted exa ms where dose is matched to clinical indication); or iterative reconstruction.
[2023-11-19 13:17] LABS: Troponin I < 50 ng/L (< or =60)
--- NOTE | 2023-11-19 13:30 | RT.EKG_ITS ---
APPROVED REPORT Exam: Resting ECG Reason for Exam: repeat EKG Patient Location: E HR:53 bpm ECG Measurements Heart Rate 53 AXIS MA 241 P 62 QRSd 122 QRS -27 QT 460 T 131 QTc 431 Conclusion Sinus bradycardia 53 no dynamic change
[2023-11-19] MEDS: Losartan 25 MG TAB PO (14:11)
--- NOTE | 2023-11-19 15:12 | NUR.NOTE ---
Referral faxed to [facility] Cardiology for recent thoracic AA repair, HTN, afib within 1 week. Nursing Note:
== END 2023-11-19 14:40 | disposition home or self-care (01) ==
PROVIDERS: Emergency Provider Physician Assistant; PCP Nurse Practitioner Family
DX: R42 Dizziness and giddiness (principal); R00.1 Bradycardia, unspecified; I48.91 Unspecified atrial fibrillation; I10 Essential (primary) hypertension; Z86.73 Personal history of transient ischemic attack (TIA), and cerebral infarction without residual deficits; Z95.2 Presence of prosthetic heart valve; Z79.01 Long term (current) use of anticoagulants; Z79.82 Long term (current) use of aspirin; Z87.891 Personal history of nicotine dependence
CPT/HCPCS: 36415; 70496; 70498; 71275; 80053; 93005; 99285; 83605; 83880; 84484; 85379; 93010; 99284; J3490

== ENCOUNTER 2023-11-26 09:00 | Outpatient (RCR) | payer BC, SELFPAY ==
--- NOTE | 2023-11-19 15:19 | NUR.NOTE ---
Nursing Note: At approximately 0838 on 11/19/23, this RN answered a call from Margaret Jennings (pt.'s ) stating that she was going to be taking the pt. to the ER this morning. Pt.'s stated that the pt.'s BP was 147/88, pt.'s HR was 48, and that the pt. was feeling ...dizzy. Pt.'s stated that she had called the pt.'s PCP this morning, and after discussing the situation with them, they advised her to take the pt. to the ER. RN reassured the pt.'s that it sounded like taking the pt. to the ER was the right decision and encouraged the pt.'s to call with any other concerns/questions. Phone call then ended.
== END 2023-11-27 23:59 | disposition home or self-care (01) ==
LOC: CR 09:00
PROVIDERS: PCP Nurse Practitioner Family; Visit Provider Internal Medicine Cardiovascular Disease
DX: I71.21 Aneurysm of the ascending aorta, without rupture (principal); Z98.61 Coronary angioplasty status; Z95.5 Presence of coronary angioplasty implant and graft; Z51.89 Encounter for other specified aftercare
CPT/HCPCS: S9472

== ENCOUNTER 2023-12-03 08:10 | Outpatient (CLI) | payer BC, SELFPAY ==
--- NOTE | 2023-12-03 08:00 | RT.EKG_ITS ---
APPROVED REPORT Exam: Resting ECG Reason for Exam: afib Patient Location: O HR:68 bpm ECG Measurements Heart Rate 68 AXIS OK 223 P 68 QRSd 114 QRS -36 QT 376 T 131 QTc 400 Conclusion Sinus rhythm...normal P axis, V-rate 50- 99 Prolonged OK interval...OK >220, V-rate 50- 90 Left atrial enlargement...P, P'>60mS, <-0.15mV V1 Borderline IVCD with LAD...QRSd >112mS, axis(-90,-30) LAFB Left ventricular hypertrophy with repolarization abnormalities
== END 2023-12-03 08:11 | disposition home or self-care (01) ==
LOC: DI.CARD 08:11
PROVIDERS: PCP Nurse Practitioner Family; Visit Provider Internal Medicine Cardiovascular Disease
DX: I48.91 Unspecified atrial fibrillation (principal)
CPT/HCPCS: 93010

== ENCOUNTER 2023-12-28 09:23 | Outpatient (RCR) | payer BC, SELFPAY | END 2023-12-28 23:59 | disposition home or self-care (01) | LOC: CR 09:23 | PROVIDERS: PCP Nurse Practitioner Family; Visit Provider Internal Medicine Cardiovascular Disease | DX: I71.21 Aneurysm of the ascending aorta, without rupture (principal); Z95.5 Presence of coronary angioplasty implant and graft; Z51.89 Encounter for other specified aftercare | CPT/HCPCS: S9472 ==

== ENCOUNTER 2024-01-25 08:00 | Outpatient (RCR) | payer BC, SELFPAY | END 2024-01-27 23:59 | disposition home or self-care (01) | LOC: CR 08:00 | PROVIDERS: PCP Nurse Practitioner Family; Visit Provider Internal Medicine Cardiovascular Disease | DX: I71.21 Aneurysm of the ascending aorta, without rupture (principal) | CPT/HCPCS: S9472 ==

== ENCOUNTER 2024-07-03 03:19 | Outpatient (CLI) | payer BC, SELFPAY ==
[2024-07-03 19:28] LABS: PSA, Diagnostic 5.8 ng/mL (<=4.5)
== END 2024-07-03 03:20 | disposition home or self-care (01) ==
LOC: LBO 03:20
PROVIDERS: Urology; PCP Nurse Practitioner Family
DX: R97.20 Elevated prostate specific antigen [PSA] (principal)
CPT/HCPCS: 36415; 84153

== ENCOUNTER 2024-08-29 00:42 | Outpatient (CLI) | payer OTHER, SELFPAY ==
[2024-08-29 07:53] LABS: Anion Gap 8.3 mmol/L (3-11); BUN 16 mg/dL (7-18); CO2 31.7 mmol/L (21.0-32.0); Calcium 9.4 mg/dL (8.5-10.1); Chloride 100 mmol/L (98-107); Estimated GFR 81.47 (mL/min/1.73m2); Glucose 93 mg/dL (74-106); Potassium 3.8 mmol/L (3.5-5.1); Sodium 140 mmol/L (136-145)
== END 2024-08-29 00:43 | disposition home or self-care (01) ==
PROVIDERS: PCP Nurse Practitioner Family; Visit Provider Nurse Practitioner Family
DX: I10 Essential (primary) hypertension (principal)
CPT/HCPCS: 36415; 80048; 84443

== ENCOUNTER 2024-11-02 09:11 | Emergency (ER) | payer OTHER, SELFPAY ==
[2024-11-02 09:18] VITALS: BP 145/85; PULSE 84; RESP 17; TEMP 36.4; O2SAT 95
[2024-11-02 09:22] VITALS: BP 145/85; PULSE 84; RESP 17; TEMP 36.4; O2SAT 95
--- NOTE | 2024-11-02 09:30 | DI.RAD_ITS ---
Exam(s) XR KNEE LT 3V AP,LAT,JUAN EXAM: XR KNEE LT 3V AP,LAT,JUAN CLINICAL HISTORY: warm, red, swollen. TECHNIQUE: 2D digital imaging was performed of the left knee. Three images were obtained. AP, late ral and PA tunnel views were obtained. COMPARISON: No exams were available for comparison FINDINGS: BONES: No acute fracture is present. No bony destructive lesion is seen. JOINTS: The knee is normally aligned. There is a small joint effusion. No loose body. SOFT TISSUE: There is soft tissue swelling anterior to the patella. IMPRESSION: 1. No acute fracture or dislocation. 2. Soft tissue swelling anterior to the patella. No radiopaque foreign body is identified. 3. Small joint effusion. DATA REPOSITORY: RADIATION DOSE DELIVERED:
--- NOTE | 2024-11-02 09:33 | W.ED.GENAD ---
Discharge Plan Disposition Patient Disposition: Home Condition: Stable Discharge Details Clinical Impression: Cellulitis of knee, left Primary Care Provider: Job Salinas ED Provider: Lenny Ordonez Home Meds and New Rx's Prescriptions: New clindamycin HCl 150 mg capsule 450 mg PO TID 7 Days Qty: 63 0RF Continued albuterol sulfate [ProAir HFA] 90 mcg/actuation HFA aerosol inhaler 2 puff inhalation Q6H PRN (Reason: shortness of breath or wheezing) Qty: 8.5 0RF prednisone 10 mg tablet 10 mg PO DIRECTED Qty: 30 0RF Rx Instructions: 40 mg po qd x 3 days, then 30 mg po qd x 3 days, then 20 mg po qd x 3 days, then 10 mg po qd po qd x 3 days, then stop triamcinolone acetonide 0.1 % cream 1 applic topical QID PRN (Reason: rash) Qty: 80 0RF aspirin [Adult Aspirin Regimen] 81 mg tablet,delayed release (DR/EC) 81 mg PO DAILY Rx Instructions: 10/08/23 Per [facility] Cardiology. -hb hydrochlorothiazide 25 mg tablet 25 mg PO DAILY Qty: 90 3RF doxycycline hyclate 100 mg capsule 100 mg PO ONCE Qty: 2 1RF Rx Instructions: Take 1 tablet by mouth once as needed(take 30minutes to 1 hour prior to dental procedures for up to 1 dose) 10/08/23 Per [facility] Cardiology. -hb montelukast [Singulair] 10 mg tablet 10 mg PO DAILY Qty: 90 4RF losartan 25 mg tablet 25 mg PO BID Qty: 180 4RF fluticasone propionate 220 mcg/actuation HFA aerosol inhaler See Rx Instructions .ROUTE .COMPLEX Rx Instructions: INHALE TWO PUFFS BY MOUTH TWICE A DAY PRN Discharge Instructions Additional Instructions: Your blood work was reassuring against having a joint space infection. Take the antibiotic as prescribed. If not improving within a week follow-up with your primary care provider. If you feel more ill or have new symptoms such as high fevers or significantly more swelling of your knee return to the emergency department for reevaluation HPI General Mode of arrival: ambulatory. Date/Time Provider Initiated Documentation: 11/02/24 09:11. Limitations to Documentation: no limitations. Information obtained by: patient. History of Present Illness 69 year old M presents to the emergency department with the chief complaint of left knee redness/swelling, described as moderate, Quality is described as aching, Patient started experiencing this day(s) (1) and it has been constant. No relieving factors improve symptom(s), No exacerbating factors reported . Patient notes denies chest pain, fever/chills and shortness of breath. Patient did receive the following treatments prior to arrival, none Related Data Home Medications ?Medication ?Instructions ?Recorded ?Confirmed albuterol sulfate 90 mcg/actuation 2 puff inhalation Q6H PRN 08/01/23 11/02/24 aerosol inhaler (ProAir HFA) shortness of breath or wheezing #8.5 grams aspirin 81 mg tablet,delayed 81 mg PO DAILY 10/12/23 11/02/24 release (Adult Aspirin Regimen) doxycycline hyclate 100 mg capsule 100 mg PO ONCE #2 caps 03/28/24 11/02/24 hydrochlorothiazide 25 mg tablet 25 mg PO DAILY #90 tabs 03/28/24 11/02/24 montelukast 10 mg tablet 10 mg PO DAILY #90 tab-caps 03/28/24 11/02/24 (Singulair) losartan 25 mg tablet 25 mg PO BID #180 tabs 07/21/24 11/02/24 prednisone 10 mg tablet 10 mg PO DIRECTED #30 tabs 10/25/24 11/02/24 triamcinolone acetonide 0.1 % 1 applic topical QID PRN rash #80 10/25/24 11/02/24 topical cream grams clindamycin HCl 150 mg capsule 450 mg (3 x 150 mg) PO TID 7 days 11/02/24 #63 caps fluticasone propionate 220 See Rx Instructions .Route .COMPLEX 11/02/24 11/02/24 mcg/actuation HFA aerosol inhaler Previous Rx's ?Medication ?Instructions ?Recorded albuterol sulfate 90 mcg/actuation 2 puff inhalation Q6H PRN 08/01/23 aerosol inhaler (ProAir HFA) shortness of breath or wheezing #8.5 grams doxycycline hyclate 100 mg capsule 100 mg PO ONCE #2 caps 03/28/24 hydrochlorothiazide 25 mg tablet 25 mg PO DAILY #90 tabs 03/28/24 montelukast 10 mg tablet 10 mg PO DAILY #90 tab-caps 03/28/24 (Singulair) losartan 25 mg tablet 25 mg PO BID #180 tabs 07/21/24 prednisone 10 mg tablet 10 mg PO DIRECTED #30 tabs 10/25/24 triamcinolone acetonide 0.1 % 1 applic topical QID PRN rash #80 10/25/24 topical cream grams clindamycin HCl 150 mg capsule 450 mg (3 x 150 mg) PO TID 7 days 11/02/24 #63 caps Allergies Allergy/AdvReac Type Severity Reaction Status Date / Time Penicillins Allergy Intermediate 'throat Verified 11/02/24 09:23 felt funny and eyes swell ' lisinopril AdvReac Unknown COUGH Verified 11/02/24 09:23 General Stated Complaint: Cellulitis BERT: 3 Review of Systems All systems reviewed & are unremarkable except as noted in HPI and below Constitutional Constitutional: Denies chills, Denies fever(s) and Denies weakness Cardiovascular Cardiovascular: Denies chest pain and Denies dyspnea Respiratory Respiratory: Denies cough and Denies dyspnea Gastrointestinal Gastrointestinal: Denies abdominal pain, Denies nausea and Denies vomiting Musculoskeletal Musculoskeletal: Reports arthralgias and Reports joint swelling Integumentary/Breasts Skin/Breast: Reports rash Neurologic Neurologic: Denies weakness Psychiatric Psychiatric: Denies depression Exam Const General: no acute distress Orientation: alert HENMT Head: normal to inspection Ears: external ears normal General nose exam: external nose normal Mouth: moist mucous membranes Eyes General: appearance normal, both eyes and all related structures Neck Neck: normal visual inspection Resp Effort & Inspection: normal respiratory effort and able to speak in complete sentences Cardio Rate: regular rate Skin General skin exam: erythema Neuro General: patient alert and patient oriented x3 Extrem General: full ROM and capillary refill normal Psych Mental Status: mental status grossly normal Course Vital Signs Vital signs: Vital Signs Temperature 36.4 C 11/02/24 09:18 Pulse 84 11/02/24 09:18 Respiratory Rate 17 11/02/24 09:18 Blood Pressure 145/85 H 11/02/24 09:18 Pulse Oximetry 95 11/02/24 09:18 Temperature 36.4 C 11/02/24 09:22 Temperature Source Oral 11/02/24 09:22 Pulse 84 11/02/24 09:22 Respiratory Rate 17 11/02/24 09:22 Blood Pressure 145/85 H 11/02/24 09:22 Blood Pressure Position Sitting 11/02/24 09:22 Pulse Oximetry 95 11/02/24 09:22 Oxygen Delivery Method Room Air 11/02/24 09:22 Oxygen Flow Rate 0 11/02/24 09:22 Pain Level 4 11/02/24 09:22 Medical Decision Making 69-year-old male who is currently on prednisone for a scaly rash prescribed by his PCP that is improving comes in with 1 day of worsening left knee pain and swelling and redness. He denies any fevers. He says that something punctured his anterior left knee approximately a week ago. He is ambulating with a normal gait on arrival. His left knee has swollen compared to the right and on the anterior surface of the knee there is erythema with a small puncture wound in the middle of it that is healing. He has full range of motion of the knee and intact distal sensation and pulses. It appears he has cellulitis and potentially a septic joint. Will proceed with CBC, CMP, inflammatory markers and an x-ray X-ray has a small joint effusion, has soft tissue swelling of the anterior knee consistent with cellulitis. Labs reassuring against septic joint. I will place him on clindamycin as he has a penicillin allergy. He will follow-up with his PCP if not improving and return precautions given Differential Diagnosis Differential Diagnosis: Cellulitis, septic joint Quality:SDOH Health Related Social Needs: No Data to Display PFSH All Active Problems (Updated 11/02/24 @ 11:28 by Lenny Ordonez MD) Cellulitis of knee, left (Acute) Rash (Acute) Thrush (Acute) Atrial fibrillation (Chronic) Hypoxia (Acute) Allergic rhinitis due to other allergen (Acute 01/22/14) fall season Asthma (Acute) worse during fall Erectile dysfunction (Acute 02/19/14) Hypertension (Acute 02/19/14) Elevated PSA (Acute) Medical History Aortic stenosis 10/08/23 Per [facility] Cardiology. -hb Ascending aortic aneurysm 10/08/23 Per [facility] Cardiology. -hb Left inguinal hernia Unspecified nasal polyp (01/22/14) Surgical History Hx of ascending aorta replacement 10/08/23 Per [facility] Cardiology. -hb S/P AVR (aortic valve replacement) 10/08/23 Per [facility] Cardiology. -hb Vasectomy HERNIA REPAIR (~09/2017) [facility] Colonoscopy - MAC (08/24/17) Family History Mother Heart disease ANGINA Angina pectoris Father Lung cancer Brother Essential hypertension Brother Cancer Social History Smoking/Tobacco Use Status: Former Tobacco Use tobacco type: cigarettes Quit Date: 07/30/95 Tobacco: How many years used: 20 Quit status: quit date established Second Hand Exposure: Yes Smoking risk assessment performed?: Yes Alcohol Intake: current Alcohol Intake frequency: a few times a month Alcohol type: beer and hard liquor Drug use: Never Adopted: No Caregiver/Support person: No Foster care: No Household members: spouse Housing: house Number of Children: 2 number of grandchildren: 3 Communication Needs: None Education Level: high school Do you need help understanding health information?: Never current occupation: [employer] Pets and animals: Yes Pets and animals: cat(s) Sexually active: Yes Do you think of yourself as: straight/heterosexual Current gender identity: male What is your relationship status?: How often do you talk on the phone with friends or family?: decline to answer How often do you get together with friends or relatives?: decline to answer How often do you attend protestant or voodoo services?: decline to answer Do you belong to any clubs or organized social groups?: yes Panel score (0-1 are the most socially isolated patients): 2 What type of physical activity do you participate in: walking and other Details: dirt biking, HIKING, SNOWSHOEING Duration: 30-45 minutes/day Frequency: 5-6 times per week Tracey/Uatsdin: Hoahaoism Special tracey needs: No Agree to transfusion: No Seatbelt use: always Helmet use: Yes Helmet use: always Drive intox or ride w/intox 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
[2024-11-02] MEDS: Tetanus & Diphtheria Tox,ADULT 0.5 ML VIAL IM (10:14)
[2024-11-02 10:19] LABS: Abs Immature Grans 0.05 10^3/uL (0.0-0.06); Absolute Basophil Count 0.03 10^3/uL (0.0-0.2); Absolute Eosinophil Count 0.01 10^3/uL (0.0-0.7); Absolute Lymphocyte Count 0.66 10^3/uL (1.2-3.4); Absolute Neutrophil Count 8.97 10^3/uL (1.2-6.7); Basophils % 0.3 %; Eosinophils % 0.1 %; HCT 46.8 % (40.0-50.0); HGB 16.1 g/dL (13.5-17.5); Immature Grans % 0.5 %; Lymphocytes % 6.5 %; MCH 29.5 pg (27.0-33.0); MCHC 34.4 % (32.0-36.0); MCV 86 fL (80-95); MPV 9.1 fL (8.0-11.0); Monocytes % 4.9 %; Neutrophils % 87.7 %; Platelet Count 264 10^3/uL (130-400); RBC 5.46 10^6/uL (4.36-5.78); RDW 12.2 % (11.8-14.1); RDW-SD 38.2 fL; WBC 10.22 10^3/uL (4.4-10.8)
[2024-11-02 10:29] LABS: ESR 10 mm/hr (0-20)
[2024-11-02 10:36] LABS: ALT 21 U/L (16-63); AST 12 U/L (15-37); Albumin 3.8 g/dL (3.4-5.0); Alkaline Phosphatase 97 U/L (46-116); Anion Gap 8.7 mmol/L (3-11); BUN 22 mg/dL (7-18); Bilirubin, Total 0.7 mg/dL (0.2-1.0); C-Reactive Protein 0.69 mg/dL (<or=0.5); CO2 27.3 mmol/L (21.0-32.0); CREATININE 0.8 mg/dL (0.70-1.30); Calcium 9.1 mg/dL (8.5-10.1); Chloride 101 mmol/L (98-107); Glucose 115 mg/dL (74-106); Sodium 137 mmol/L (136-145); Total Protein 7.3 g/dL (6.4-8.2)
[2024-11-02 11:01] LABS: Procalcitonin < 0.10 ng/mL
[2024-11-02] MEDS: CLINDAMYCIN 600 MG/50 ML BAG 100 MG IVPB (11:38)
[2024-11-02] MEDS: Clindamycin 150 MG CAP, 12 CAPS/BTL 450 MG PO (11:39)
[2024-11-02 11:42] VITALS: BP 147/100; PULSE 76; RESP 16; O2SAT 97
[2024-11-02 12:15] VITALS: BP 147/100; PULSE 76; RESP 16; O2SAT 97
== END 2024-11-02 12:13 | disposition home or self-care (01) ==
PROVIDERS: Emergency Provider Emergency Medicine; PCP Nurse Practitioner Family
DX: L03.116 Cellulitis of left lower limb (principal); M25.462 Effusion, left knee; Z79.82 Long term (current) use of aspirin; I48.91 Unspecified atrial fibrillation; Z87.891 Personal history of nicotine dependence; Z23 Encounter for immunization
CPT/HCPCS: 73562; 80053; 84145; 85652; 90471; 90714; 96374; 99284; 83735; 85025; 86140; J0737

== ENCOUNTER 2024-11-04 12:08 | Outpatient (REF) | payer OTHER, SELFPAY | END 2024-11-04 12:09 | disposition home or self-care (01) | LOC: LBN 12:08 | PROVIDERS: PCP Nurse Practitioner Family; Visit Provider Nurse Practitioner Family | DX: L98.9 Disorder of the skin and subcutaneous tissue, unspecified (principal); L03.90 Cellulitis, unspecified; L03.116 Cellulitis of left lower limb | CPT/HCPCS: 87077; 87070; 87186; 87205 ==

== ENCOUNTER 2024-11-04 13:57 | Outpatient (CLI) | payer OTHER, SELFPAY ==
[2024-11-04 13:18] LABS: Abs Immature Grans 0.04 10^3/uL (0.0-0.06); Absolute Basophil Count 0.03 10^3/uL (0.0-0.2); Absolute Eosinophil Count 0.09 10^3/uL (0.0-0.7); Absolute Monocyte Count 0.86 10^3/uL (0.1-0.8); Absolute Neutrophil Count 6.47 10^3/uL (1.2-6.7); Basophils % 0.4 %; Eosinophils % 1.1 %; HCT 46.2 % (40.0-50.0); HGB 15.6 g/dL (13.5-17.5); Immature Grans % 0.5 %; Lymphocytes % 11.8 %; MCH 29.5 pg (27.0-33.0); MCHC 33.8 % (32.0-36.0); MCV 88 fL (80-95); MPV 9.2 fL (8.0-11.0); Monocytes % 10.1 %; Neutrophils % 76.1 %; Platelet Count 237 10^3/uL (130-400); RBC 5.28 10^6/uL (4.36-5.78); RDW 12.2 % (11.8-14.1); RDW-SD 39.3 fL; WBC 8.49 10^3/uL (4.4-10.8)
[2024-11-04 14:49] LABS: Anion Gap 8.5 mmol/L (3-11); BUN 14 mg/dL (7-18); C-Reactive Protein 2.16 mg/dL (<or=0.5); CO2 30.5 mmol/L (21.0-32.0); CREATININE 0.9 mg/dL (0.70-1.30); Calcium 8.9 mg/dL (8.5-10.1); Chloride 95 mmol/L (98-107); Estimated GFR 92.45 (mL/min/1.73m2); Glucose 97 mg/dL (74-106); Sodium 134 mmol/L (136-145)
== END 2024-11-04 13:58 | disposition home or self-care (01) ==
LOC: LBO 13:58
PROVIDERS: PCP Nurse Practitioner Family; Visit Provider Nurse Practitioner Family
DX: L03.90 Cellulitis, unspecified; L98.9 Disorder of the skin and subcutaneous tissue, unspecified; L03.116 Cellulitis of left lower limb
CPT/HCPCS: 36415; 80048; 85025; 86140; 87070; 87205

== ENCOUNTER 2025-01-16 01:09 | Outpatient (CLI) | payer OTHER, SELFPAY | END 2025-01-16 01:10 | disposition home or self-care (01) | PROVIDERS: PCP Nurse Practitioner Family; Visit Provider Urology | DX: R97.20 Elevated prostate specific antigen [PSA] (principal) | CPT/HCPCS: 36415; 84153 ==